=== PATIENT | female | born 1975 | race Caucasian/White ===

== ENCOUNTER 2017-08-28 10:20 | Outpatient (CLI) | payer OTHER ==
--- NOTE | 2017-08-28 13:01 | CT ---
CT ABDOMEN AND PELVIS WITH AND WITHOUT CONTRAST: INDICATIONS: History of urinary incontinence with recurrent UTIs. The patient has a history of gastric bypass, a hysterectomy, and a bladder sling procedure. FINDINGS: There is post procedural change of a gastric bypass. A suspected area of transient intussusception i s seen within the left lower quadrant of the abdomen, at the small bowel/small bowel anastomosis, on image 35 of series 3. There is up upstream dilatation to suggest obstruction. There is no inflammat ory change involving the mesentery in this location. There is a normal appendix in the right lower q uadrant of the abdomen. No focal hepatic lesion is evident. No focal renal lesion is evident. No h ydronephrosis is demonstrated. No renal or ureteral calculus is demonstrated. No abnormal enhanceme nt is seen within the region of the partially distended bladder. A small involuting follicle is suspected within the left adnexa on image 71 of series 3, measuring 1 cm. The large bowel appears within normal limits. No acute osseous abnormality is evident. IMPRESSION: 1. No focal renal lesion is evident. No hydronephrosis is evident. No renal or ureteral calculus i s noted. 2. Small focal region of intussusception at the small bowel/small bowel anastomosis of the patient's gastric bypass, in the left lower quadrant of the abdomen, without obstructive features of the small bowel, likely related to transient intussusception; however, would recommend correlation with the pa tient's clinical history and exam for any signs or symptoms to suggest obstruction. 3. Suspected involuting follicle of the left adnexa. POS: [facility]
[2017-08-28] MEDS ORDERED: Iopamidol 370 76% 100 ML VIAL ONE (13:02)
--- NOTE | 2017-08-28 13:31 | RAD ---
IVP: Date: 08/28/17 CLINICAL HISTORY: Continuous leakage of urine/urinary incontinence. History of urinary tract infections. FINDINGS: [employer] imaging is performed, which reveals no obvious radiopaque calculus overlying the renal shadows. There is suture material seen at the left abdomen and at the epigastric region. There are phlebolith s overlying the pelvis. There is symmetric excretion of contrast from each kidney with symmetric appe aring renal tomograms. The contrast opacified urinary collecting systems reveal no pathologic dilatat ion. The segmentally visualized ureters do not reveal significant, fixed filling defect. There are sc attered focal areas of tortuosity of the ureters bilaterally. Delayed imaging reveals a mild residua of the urinary bladder. IMPRESSION: 1. No persistent, fixed filling defects of the contrast opacified urinary collecting system. 2. Mild post-void residua. POS: [facility]
== END 2017-08-28 10:21 | disposition home or self-care (01) ==
LOC: RAD 10:20
PROVIDERS: ATTEND Urology
DX: N39.45 Continuous leakage (principal); N39.0 Urinary tract infection, site not specified
CPT/HCPCS: 74178; 74410